=== PATIENT | male | born 1955 | race Caucasian/White ===

== ENCOUNTER → 2016-12-10 | Outpatient (CLI) | payer BC ==
[~2016-12-10] MED LIST: ADVA250A INH; FURO40TA PO; GABA300C5 PO; GABA600T PO; HYDR-3533 PO; IPRAAER INH; LISI40TA PO; MELO-1 PO; METH500T3; POTA-243 PO; SODI1TAB PO; TRAM50TA PO; [UNRECOGNIZED DRUG - CODE]
[2016-12-10 08:50] LABS: AUTOMATED NEUTROPHIL # 2.7 TH/MM3 (1.8-7.7); BASOPHIL % 0.6 % (0.0-2.0); EOSINOPHIL # 0.2 TH/MM3 (0-0.4); EOSINOPHIL % 2.8 % (0.0-4.0); HEMATOCRIT 39.3 % (39.0-51.0); HEMO FLAGS DIFF FINAL; LYMPH % 24.4 % (9.0-44.0); LYMPHOCYTE # 1.4 TH/MM3 (1.0-4.8); MEAN CELL VOLUME 98.6 FL (80.0-100.0); MEAN CORPUSCULAR HEMOGLOBIN 33.7 PG (27.0-34.0); MEAN CORPUSCULAR HGB CONC 34.1 % (32.0-36.0); MONO % 23.3 % (0.0-8.0); NEUT % 48.9 % (16.0-70.0); PLATELET COUNT 253 TH/MM3 (150-450); RED BLOOD COUNT 3.99 MIL/MM3 (4.50-5.90); RED CELL DISTRIBUTION WIDTH 13.2 % (11.6-17.2); WHITE BLOOD COUNT 5.6 TH/MM3 (4.0-11.0)
[2016-12-10 08:59] LABS: APTT (PATIENT) 27.9 SEC (24.3-30.1); INTERNATIONAL NORMALIZED RATIO 0.9 RATIO; PROTHROMBIN TIME - PATIENT 10.1 SEC (9.8-11.6)
[2016-12-10 09:17] LABS: ANION GAP 10 MEQ/L (5-15); AST (GOT) 100 U/L (15-37); BICARBONATE 24.5 MEQ/L (21.0-32.0); BLOOD UREA NITROGEN 10 MG/DL (7-18); CHLORIDE 91 MEQ/L (98-107); GLOMERULAR FILTRATION RATE 122 ML/MIN (>89); GLUCOSE,FASTING 96 MG/DL (74-99); POTASSIUM 4.8 MEQ/L (3.5-5.1); SODIUM (NA) 125 MEQ/L (136-145)
[2016-12-10 09:19] LABS: ALT (GPT) 89 U/L (12-78)
[2016-12-10 09:22] LABS: ALKALINE PHOSPHATASE 83 U/L (45-117); TOTAL BILIRUBIN ADULT 1.2 MG/DL (0.2-1.0)
[2016-12-10 10:13] LABS: BLOOD, URINE NEG (NEG); GLUCOSE,URINE NEG (NEG); KETONE, URINE NEG (NEG); NITRITE,URINE NEG (NEG); PH, URINE 6.5 (5.0-8.5); URINE COLOR YELLOW (YELLW/STRAW)
[2016-12-10 10:24] LABS: COMMENT (UR) CULT NOT INDICATED; CULTURE IF INDICATED CULT NOT INDICATED
--- NOTE | 2016-12-10 11:07 | RADRPT ---
EXAM DATE/TIME: 12/10/2016 09:14 [facility] COMPARISON: No previous studies available for comparison. INDICATIONS : Pre op cervical fusion. Evaluate for pneumothorax, pneumonia, or any communicable diseases. MEDICAL HISTORY : None. SURGICAL HISTORY : None. ENCOUNTER: Initial ACUITY: 1 day PAIN SCORE: 0/10 LOCATION: Bilateral chest FINDINGS: PA and lateral views of the chest demonstrate the lungs to be symmetrically aerated without evidence of mass, infiltrate or effusion. Granuloma left base. The cardiomediastinal contours are unremarkab le. Osseous structures are intact. CONCLUSION: No acute disease. Calvin Matthew MD FACR on December 10, 2016 at 11:06 Board Certified Radiologist. This report was verified electronically.
--- NOTE | 2016-12-10 14:44 | EKG ---
Date Performed: 12/10/2016 Time Performed: 08:21:06 PTAGE: 61 years EKG: NORMAL Sinus rhythm LOW QRS VOLTAGE POSSIBLE RIGHT VENTRICULAR CONDUCTION DELAY RIGHTWARD AXIS POOR R-WAVE PROGRESSION C ompared to prior tracing no significant change DOCTOR: Romaine Medellin Interpretating Date/Time 12/10/2016 14:44:19
== END ==
LOC: CPRE 07:53
PROVIDERS: ATTEND Neurological Surgery
DX: Z01.812 Encounter for preprocedural laboratory examination (principal); Z01.810 Encounter for preprocedural cardiovascular examination; Z01.811 Encounter for preprocedural respiratory examination; Z01.818 Encounter for other preprocedural examination; M48.02 Spinal stenosis, cervical region
CPT/HCPCS: 36415; 71020; 80053; 81001; 85025; 85610; 85730; 93005

== ENCOUNTER → 2016-12-12 | Outpatient (CLI) | payer BC ==
[~2016-12-12] MED LIST changes: -METH500T3; -[UNRECOGNIZED DRUG - CODE]
--- NOTE | 2016-12-12 14:24 | EKG ---
Date Performed: 12/12/2016 Time Performed: 08:16:21 PTAGE: 61 years EKG: Sinus rhythm POSSIBLE ANTEROSEPTAL INFARCT, AGE UNDETERMINED ABNORMAL ECG NO PREVIOUS TRACING DOCTOR: Ernie Quintanilla Interpretating Date/Time 12/12/2016 14:22:44
== END ==
LOC: CPRE 08:05
PROVIDERS: ATTEND Neurological Surgery
DX: Z01.810 Encounter for preprocedural cardiovascular examination (principal); Z01.811 Encounter for preprocedural respiratory examination; Z01.812 Encounter for preprocedural laboratory examination; Z01.818 Encounter for other preprocedural examination; M48.02 Spinal stenosis, cervical region; R94.31 Abnormal electrocardiogram [ECG] [EKG]
CPT/HCPCS: 93005

== ENCOUNTER 2016-12-17 06:30 | Observation (INO) | payer BC ==
[~2016-12-17] VITALS: Ht 182.9 cm; Wt 91.9 kg
[~2016-12-17 06:30] MED LIST changes: -HYDR-3533 PO
[2016-12-17] MEDS ORDERED: VANCOMYCIN HCL 1000 MG ON-CALL/NS 250 ML IV SCH ×4 (06:45→07:00)
[2016-12-17] MEDS ORDERED: SODIUM CHLOR 0.9% 1000 ML INJ 1,000 ML IV SCH (07:00)
[2016-12-17] MEDS ORDERED: LACTATED RINGER'S 1000 ML IV PRN (07:00)
[2016-12-17] MEDS ORDERED: METOPROLOL TARTRATE 25 MG TAB PO PRN (07:00)
[2016-12-17] MEDS ORDERED: SODIUM CHLORID 0.9% 500 ML IV PRN (07:00)
[2016-12-17] MEDS ORDERED: CHLORHEXIDINE GLUCONATE 2 % 1 PACK (2 CLOTHS) TOPICAL PRN (07:00)
[2016-12-17] MEDS ORDERED: POVIDONE IODINE 5% (ANTISEPSIS KIT) 4 APPLICATIONS EACH NARE PRN (07:00)
[2016-12-17] MEDS ORDERED: INSULIN HUMAN REGULAR 1,000 UNITS/10 ML VIAL SQ PRN (07:00)
[2016-12-17] MEDS ORDERED: PROPOFOL 500 MG/50 ML INJ 100 ML ONE (07:09)
[2016-12-17] MEDS ORDERED: ceFAZolin 2 GM PREMIX 50 ML ONE (07:43)
[2016-12-17] MEDS ORDERED: MICROFIBRILLAR COLLAGEN HEMOSTAT 70 X 35 MM BANDAGE ONE (07:43)
[2016-12-17] MEDS ORDERED: THROMBIN (TOPICAL) 5,000 UNIT VIAL ONE (07:43)
[2016-12-17] MEDS ORDERED: GENTAMICIN SULFATE 80 MG/2 ML VIAL ONE (07:44)
[2016-12-17] MEDS ORDERED: GELFOAM SIZE 100 ONE (07:44)
[2016-12-17] MEDS ORDERED: ARTIFICIAL TEARS OPTH OINT 3.5 APPLIC/3.5 GM TUBO ONE (08:38)
[2016-12-17] MEDS ORDERED: DO NOT ADM ANY ANTICOAGULANT DRUGS PRN (11:30)
--- NOTE | 2016-12-17 11:39 | PD.OP ---
Operative Report Date of Surgery: Dec 17, 2016 Preoperative Diagnosis: CERVICAL SPINAL STENOSIS Postoperative Diagnosis: CERVICAL SPINAL STENOSIS Procedure: C5-6 anterior cervical discectomy, interbody arthodhesis using PEEK cage filled with autologous bone graft, Simplicity plate and screws Anesthesia: general Surgeon: Rick Gutierrez Airport Security Screener(s): Kelsey Kingsley Operation and Findings: INDICATIONS FOR THE PROCEDURE Mr. liao is a 61 year-old male who presented with intractable neck pain and clinical evidence of C6 upper extremity radiculopathy. He had severe stanosis at C5-6. He failed maximum nonsurgical management including multiple modalities of conservative treatment as well as pain management interventions by an interventional pain specialist. A surgical decompression and arthrodhesis were indicated. The [id number] details of the procedure, indications, alternatives, risks and potential complications were fully discussed with the patient. The patient fully understood. All The questions were answered. No guarantees were given. The patient voiced requesting the procedure and provided informed consents. The patient was offered the alternative of delaying the procedure and continuing with nonsurgical management. DETAILS OF THE SURGICAL PROCEDURE After the induction of general anesthesia, endotracheal intubation was performed. A Bennett catheter, bilateral MANUELA hose, and sequential compression devices were placed and kept throughout the procedure. The patient was positioned supine on a Tim table with the head over a gel doughnut. All pressure points were carefully padded with egg crate mattress. The eyes were tapped shut after ointment was applied by the anesthesiologist to prevent corneal abrasion. A Tessy hugger was placed over the exposed lower body to maintain control of the core body temperature. The electrophysiological team placed the needles and electrodes in their proper location and baseline SSEP's and motor evoked potentials were registered. The anterior cervical region was prepped and draped in the usual sterile fashion. A localizing x-ray was performed with a C-arm. The surgical procedure was performed in several steps as follow: SURGICAL APPROACH A skin incision was made along the middle cervical crease with a #10 blade. The dissection was carried out through the platysma exposing the sternocleidomastoid muscle. The cervical spine was approached following the fascial layers of the neck just medial to the anterior border of the sternocleidomastoid and carotid sheath by a combination of sharp and dull dissection. The omohyoid muscle was identified and carefully dissected laterally and the deep cervical fascia was carefully opened. The longus colli muscles were retracted to each side of the midline. A marker was placed at the disc space C5-6 and a cross-table lateral x-ray performed with a C-arm. SURGICAL DECOMPRESSION In order to decompress the anterior surface of the spinal cord it was necessary to preform a microsurgical resection of the disk. At this point in the procedure the operating microscope was draped in the usual sterile fashion and brought to the field. The rest of the surgical procedure was performed using microdissection technique with the exception of the closure. Under the operative microscopic, an anterior osteophytic spur was carefully removed using the leksell, and a self-retaining retractor was placed underneath the longus colli muscle. The annulus at C5-6 was incised with a #15 blade and microdiscectomy was then carefully carried out using angled curets and pituitary forceps. The patient had a posterior osteophytic/disk complex which was producing mass affect on the anterior surface of the dural sac. This was carefully drilled with a TPS drill and resected with a think foot plate 2mm kerrison under high magnification. The posterior longitudinal ligament was then elevated with an angled curet and incised with a 15 bladed knife. A careful ressection of the posterior longitudinal ligament was carried out using a thin footplate 2 mm Kerrison. The decompression was then carried out laterally , and a bilateral foraminotomy was performed with a 2mm thin foot Kerrison. Then the vertebral bodies above and below the disk space were undercut using a 2 mm thin foot Kerrison. The epidural space was the systematically assessed with a nerve hook in search for disk fragments. An excellent decompression was achieved in both, the dural sac and bilateral exiting nerve roots. The incision was then irrigated with a large amount of antibiotic solution INTERBODY ARTHRODHESIS In order to avoid collapse of the disk space which would result in bilateral foraminal stenosis, and to increase the chances of a successful fusion, it was necessary to place an interbody cage filled with autologous bone. At this point of the procedure, the superior and inferior endplates were then evenly decorticated with a TPS drill. The use of a drill in combination with a curette allowed me to systematically remove the cartilaginous endplates, exposing healthy bone for the interbody arthrodesis. forteen millimeters distraction pins were then placed at the vertebral bodies adjacent to the disk space, and gentle distraction was applied. The size of the interbody cage was then assessed using different size spacers, and a rasp was used to ensure no residual cartilage. A PEEK cage of the appropriate size was selected, and the interbody arthrodesis was then preformed by carefully impacting a PEEK cage filled with autologous bone graft to the disc space C5-6. An excellent position of the cage was achieved. This was was confirmed anatomically by feelling the space posterior to the implant and distance to the anterior surface of the dural sac. Radiological confirmation of the position was performed with a cross lateral xray performed with the C-arm. INTERNAL INSTRUMENTAL FIXATION Once that the interbody device was in an appropriate position, it was necessary to stabilize the spine with anterior instrumentation. Anterior instrumentation has demonstrated to increase the rate of fusion, acelerate the patient's recovery, and decrease the rate of failed interbody grafts. At this point of the procedure, the distance between the vertebral bodies was carefully measures, and a Simplicity plate was brought to the field and presented in front of the C5 and 6 vertebral bodies. Beauty Sales Consultant holes were then drilled using the TPS drill, and the plate was then secured to the spine using self-drilling, self-tapping screws. Initially, the inferior right screw was inserted, followed by placement of the contra lateral upper screw. The remaining screws were sequentially placed in a contra-lateral fashion. A proper purchase was achieved with all screws and the position of the cage, plate and screws, and alignment of the spine was assessed anatomically by direct visualization, and radiologically by performing a cross lateral xray of the cervical spine with the C-arm. CLOSURE The incision was irrigated with several liters of antibiotic solution. Hemostasis was achieved with a bipolar. The screws were locked to prevent backing out. A 7 mm Tim-Anna drain was left in the prevertebral space and externalized through a separate stab incision. The incision was then closed in layers. 3-0 Vicryl with interrupted sutures was used to close the platysma and subcutaneous tissue. The skin was closed with 4-0 running subcuticular Vicryl and Dermabond was applied to the skin. The drain was secured with a 3-0 nylon. At the end of the procedure the sponge, needle and instrument counts were all correct. The estimated blood loss was less than 50 cc. No blood transfusion was given. No intraoperative complications occurred. The patient received prophylactic antibiotics. The patient was then extubated and transferred to the recovery room in stable condition. Rick Gutierrez MD Dec 17, 2016 11:39
[2016-12-17] MEDS ORDERED: ACETAMINOPHEN/HYDROcodone 325 MG/10 MG TAB PO PRN (11:45)
[2016-12-17] MEDS ORDERED: MORPHINE SULFATE 4 MG/ML INJ IV PUSH PRN ×2 (11:45)
[2016-12-17] MEDS ORDERED: cloNIDine HCL 0.1 MG TAB PO/NG PRN (11:45)
[2016-12-17] MEDS ORDERED: HYDR-3533 PO (11:45)
[2016-12-17] MEDS ORDERED: SODIUM CHLORIDE 0.9% FLUSH 5 ML FLUSH IVF PRN (11:45)
[2016-12-17] MEDS ORDERED: MENTHOL LOZENGE BUCCAL PRN (11:45)
[2016-12-17] MEDS ORDERED: RESP: ALBUTEROL 2.5 MG/3 ML NEB (PRN) INH (11:45)
[2016-12-17] MEDS ORDERED: GLUCAGON 1 MG/ML VIAL OTHER PRN (11:45)
[2016-12-17] MEDS ORDERED: DEXTROSE 50% IN WATER 50 ML VIAL(D50) IV PUSH PRN (11:45)
[2016-12-17] MEDS ORDERED: ACETAMINOPHEN 325 MG TAB PO PRN (11:45)
[2016-12-17] MEDS ORDERED: BISACODYL 10 MG SUPP RECTAL PRN (11:45)
[2016-12-17] MEDS ORDERED: ONDANSETRON HCL 4 MG/2 ML VIAL IV PRN (11:45)
[2016-12-17] MEDS ORDERED: MAGNESIUM HYDROXIDE SUSP 30 ML CUP PO PRN (11:45)
[2016-12-17] MEDS ORDERED: *MEPERIDINE 25 MG INJ VIAL PERIprocedural Use ONLY ONE (11:52)
[2016-12-17] MEDS ORDERED: MIDAZOLAM HCL 2 MG/2 ML VIAL IV ONE (12:00)
[2016-12-17] MEDS ORDERED: NEOSTIGMINE 3 MG/3 ML SYR IV ONE (12:00)
[2016-12-17] MEDS ORDERED: PHENYLEPH/NS 1000 MCG/10 ML SYR IV ONE (12:00)
[2016-12-17] MEDS ORDERED: ONDANSETRON HCL 4 MG/2 ML VIAL IV PUSH ONE (12:00)
[2016-12-17] MEDS ORDERED: ePHEDrine/NS 25 MG/5 ML SYR IV ONE (12:00)
[2016-12-17] MEDS ORDERED: DEXAMETHASONE SOD PHOS 4 MG/ML VIAL IV ONE (12:00)
[2016-12-17] MEDS ORDERED: PROPOFOL 200 MG/20 ML AMP IV ONE (12:00)
[2016-12-17] MEDS ORDERED: LIDOCAINE HCL 1% PF 5 ML AMPULE OTHER ONE (12:00)
[2016-12-17] MEDS ORDERED: GLYCOPYRROLATE 1 MG/5 ML SYRINGE IV PUSH ONE (12:00)
[2016-12-17] MEDS ORDERED: ROCURONIUM INJ 50 MG/5 ML SYRINGE IV PUSH ONE (12:00)
[2016-12-17] MEDS: INSULIN ASPART SUPPLEMENTAL SCALE SQ SCH ×3 (12:00→21:57)
[2016-12-17] MEDS ORDERED: *morphine SULFATE 8 MG/ML PERIprocedure ONLY ONE ×2 (12:08→13:28)
[2016-12-17] MEDS ORDERED: NON-FORMULARY DRUG (Ipratropium-Albuterol Inh (Combivent Respimat Inh) 1 PUFF) INH SCH (13:00)
[2016-12-17] MEDS: SODIUM CHLOR 0.9% 1000 ML INJ 1,000 ML IV SCH ×2 (14:31→16:07)
--- NOTE | 2016-12-17 15:44 | RADRPT ---
EXAM DATE/TIME: 12/17/2016 09:45 [facility] COMPARISON: No previous studies available for comparison. INDICATIONS : Fusion C5,C6. MEDICAL HISTORY : None. SURGICAL HISTORY : None. ENCOUNTER: Initial ACUITY: 1 day PAIN SCORE: Non-responsive. LOCATION: Cervical spine. FINDINGS: 2 magnified C. arm spot views are centered over the cervical spine and reveal an anterior fusion plat e with intervening bone graft device at C5-C6. Good alignment noted. Paraspinal soft tissues are obsc ured by an endotracheal tube. Carotid artery atherosclerotic calcifications noted bilaterally. CONCLUSION: Limited images as detailed above. Wiliam De Dios Jr., MD on December 17, 2016 at 15:42 Board Certified Radiologist. This report was verified electronically.
[2016-12-17] MEDS: DEXAMETHASONE SOD PHOS 4 MG/ML VIAL IV PUSH SCH ×2 (16:06→21:57)
[2016-12-17] MEDS: ceFAZolin 2 GM PREMIX 50 ML IV SCH (16:13)
[2016-12-17 17:24] VITALS: BP 132/84; PULSE 110; RESP 16; TEMP 97.7; O2SAT 94
[2016-12-17] MEDS: CYCLOBENZAPRINE HCL 10 MG TAB PO PRN (17:39)
[2016-12-17] MEDS: ACETAMINOPHEN/HYDROcodone 325 MG/10 MG TAB PO PRN ×2 (17:40→21:58)
[2016-12-17] MEDS: ALBUTEROL SULFATE 90 MCG/ACT HFA 8 GM INHALER INH SCH ×2 (18:46→21:54)
[2016-12-17 19:05] VITALS: BP 164/94; PULSE 120; RESP 16; TEMP 96.4; O2SAT 94
[2016-12-17] MEDS ORDERED: GABAPENTIN 300 MG CAP PO SCH (21:00)
[2016-12-17] MEDS ORDERED: CHLORHEXIDINE GLUCONATE 4% SOLN 120 ML BTL TOP SCH (21:00)
[2016-12-17] MEDS: DOCUSATE SODIUM 100 MG CAP PO SCH (21:56)
[2016-12-17] MEDS: traMADol HCL 50 MG TAB PO SCH (21:56)
[2016-12-17] MEDS: SODIUM CHLORIDE 0.9% FLUSH 5 ML FLUSH IVF SCH (21:58)
[2016-12-17] MEDS ORDERED: LORazepam 2 MG/ML VIAL IV PRN (22:15)
[2016-12-17] MEDS: BUDESONIDE-FORMOTEROL 160/4.5 MCG INHALER INH SCH (22:47)
[2016-12-18 00:20] VITALS: BP 130/81; PULSE 97; RESP 16; TEMP 97.3; O2SAT 94
[2016-12-18] MEDS: SODIUM CHLOR 0.9% 1000 ML INJ 1,000 ML IV SCH (00:48)
[2016-12-18] MEDS: ceFAZolin 2 GM PREMIX 50 ML IV SCH ×2 (00:48→08:55)
[2016-12-18] MEDS: DEXAMETHASONE SOD PHOS 4 MG/ML VIAL IV PUSH SCH ×2 (03:57→08:56)
[2016-12-18] MEDS: ACETAMINOPHEN/HYDROcodone 325 MG/10 MG TAB PO PRN ×2 (03:57→11:25)
[2016-12-18 04:17] VITALS: BP 131/75; PULSE 84; RESP 16; TEMP 96.5; O2SAT 94
[2016-12-18 08:00] VITALS: BP 149/76; PULSE 81; RESP 18; TEMP 96.7; O2SAT 94
[2016-12-18] MEDS: INSULIN ASPART SUPPLEMENTAL SCALE SQ SCH (08:00)
[2016-12-18] MEDS: DOCUSATE SODIUM 100 MG CAP PO SCH (08:56)
[2016-12-18] MEDS: CYCLOBENZAPRINE HCL 10 MG TAB PO PRN (08:56)
[2016-12-18] MEDS: SODIUM CHLORIDE 0.9% FLUSH 5 ML FLUSH IVF SCH (08:57)
[2016-12-18] MEDS: traMADol HCL 50 MG TAB PO SCH (08:57)
[2016-12-18] MEDS: ALBUTEROL SULFATE 90 MCG/ACT HFA 8 GM INHALER INH SCH (08:58)
[2016-12-18] MEDS ORDERED: GABAPENTIN 300 MG CAP PO SCH (09:00)
[2016-12-18] MEDS ORDERED: POTASSIUM CHLORIDE 10 MEQ CONTROLLED RELEASE TAB PO SCH (09:00)
[2016-12-18] MEDS ORDERED: SODIUM CHLORIDE 1 GRAM TAB PO SCH (09:00)
[2016-12-18] MEDS ORDERED: LISINOPRIL 20 MG TAB PO SCH (09:00)
[2016-12-18] MEDS ORDERED: PANTOPRAZOLE SODIUM 40 MG VIAL IVP SCH (09:00)
[2016-12-18] MEDS ORDERED: TIOTROPIUM BROMIDE 18 MCG INH INH SCH (09:00)
[2016-12-18] MEDS ORDERED: FUROSEMIDE 40 MG TAB PO SCH (09:00)
[2016-12-18] MEDS ORDERED: PANTOPRAZOLE SOD 40 MG DELAYED RELEASE TAB PO SCH (09:00)
--- NOTE | 2016-12-18 10:44 | HHI.DCPOC ---
Discharge Care Plan Diagnosis: (1) Status post cervical arthrodesis Goals to Promote Your Health * To prevent worsening of your condition and complications * To maintain your health at the optimal level Directions to Meet Your Goals Take your medications as prescribed Follow your dietary instruction Follow activity as directed Keep your appointments as scheduled Take your immunizations and boosters as scheduled If your symptoms worsen call your PCP, if no PCP go to Urgent Care Center or Emergency Room Smoking is Dangerous to Your Health. Avoid second hand smoke Call the 24-hour hour crisis hotline for domestic abuse at Irma Mancilla Dec 18, 2016 10:44
--- NOTE | 2016-12-18 10:46 | HHI.DS ---
Discharge Summary Admission Date Dec 17, 2016 at 11:38 Discharge Date: Dec 18, 2016 Admitting Diagnosis s/p ACDF (1) Status post cervical arthrodesis ICD Code: Z98.1 - Arthrodesis status Brief History Mr. Barnhart is a 61 year-old male who presented with intractable neck pain and clinical evidence of C6 upper extremity radiculopathy. He had severe stenosis at C5-6. He failed maximum nonsurgical management including multiple modalities of conservative treatment as well as pain management interventions by an interventional pain specialist. A surgical decompression and arthrodesis were indicated. Imaging Last Impressions Cervical Spine X-Ray 12/17/16 0000 Signed Impressions: Service Date/Time: Thursday, December 17, 2016 09:45 - CONCLUSION: Limited images as detailed above. Wiliam De Dios Jr., MD Hospital Course Mr. Barnhart underwent C5-6 anterior cervical discectomy, interbody arthrodesis using PEEK cage filled with autologous bone graft, simplicity plate and screws on Dec 17, 2016 for cervical spine stenosis. His surgery went well without complications. He was discharged home in stable conditions. Pt Condition on Discharge: Stable Discharge Disposition: Disch w/ Home Health Serv Discharge Instructions DIET: Follow Instructions for: Heart Healthy Diet ACTIVITIES You can perform: Weight Bearing As Aaron ADDITIONAL Activity Instructio: Avoid strenuous activities, heavy lifting over 5 lbs, overhead activities, repetitive bending, twisting, pushing, pulling or any activities which might result in stress over the spine. Avoid situation that will put at risk for falls. Use assistive device as needed for walking. Wear cervical collar at all times, may remove only with meals. New Medications: Hydrocodone-Acetaminophen (Lortab) 5-325 Mg Tab 1 TAB PO Q8HR PRN for PAIN, #62 TAB 0 Refills Continued Medications: Fluticasone-Salmeterol Inh (Advair Diskus Inh) 250-50 Mcg/Blist Aer 1 PUFF INH BID, #1 INHALER 0 Refills Rinse mouth after use. Furosemide (Furosemide) 40 Mg Tab 40 MG PO DAILY Gabapentin (Gabapentin) 300 Mg Cap 300 MG PO DAILY Gabapentin (Gabapentin) 600 Mg Tab 600 MG PO HS, #30 TAB 0 Refills Ipratropium-Albuterol Inh (Combivent Respimat Inh) 20-100 Care Home/Act Aero 1 PUFF INH QID for Asthma Management, #1 INHALER 0 Refills Lisinopril (Lisinopril) 40 Mg Tab 40 MG PO DAILY Potassium Chloride ER (Klor-Con 10) 10 Meq Tab 10 MEQ PO DAILY Sodium Chloride (Sodium Chloride) 1 Gram Tab 1 GM PO DAILY Tramadol (Tramadol) 50 Mg Tab 50 MG PO BID Discontinued Medications: Meloxicam (Meloxicam) 15 Mg Tab 15 MG PO DAILY Irma Mancilla Dec 18, 2016 10:46
--- NOTE | 2016-12-18 10:46 | HHI.FF ---
Face to Face Verification Diagnosis: (1) Status post cervical arthrodesis Physical Therapy Order: Improve ambulation Home Health Nursing Order: Medical education Signs/symptoms of disease process Medication education-adverse effect Wound care and dressing changes Nursing assessment with vital signs I have seen patient Gilberto Barnhart on 12/18/16. My clinical findings support the need for the requested home health care services because: Deconditioned w/ increased weakness High risk of falls I certify that my clinical findings support that this patient is homebound because: Post-op weakness Unsteady gait/balance Irma Mancilla Dec 18, 2016 10:46
[2016-12-18] MEDS: BUDESONIDE-FORMOTEROL 160/4.5 MCG INHALER INH SCH (11:12)
== END 2016-12-18 11:52 | disposition home health service (06) ==
LOC: HSDC 06:30 → HSDI 11:38 → N06B 17:05
PROVIDERS: ADMIT Neurological Surgery; ATTEND Neurological Surgery
DX: M48.02 Spinal stenosis, cervical region (principal); M54.12 Radiculopathy, cervical region; M54.2 Cervicalgia; G89.29 Other chronic pain; I10 Essential (primary) hypertension; J44.9 Chronic obstructive pulmonary disease, unspecified; K21.9 Gastro-esophageal reflux disease without esophagitis; R73.02 Impaired glucose tolerance (oral)
CPT/HCPCS: 00600; 20936; 22551; 22845; 22859; 72040; 76000; 82948; 96361; 96374; 96375; 96376; 97161; C1713; C9113; G0378; G8987; G8988; J0690; J1100; J1580; J1815; J2175; J2250; J2270; J2370; J2405; J2710; J3010; J3370; J7030; J7050; J7120; L0150; L0172

== ENCOUNTER 2018-03-03 07:57 | Inpatient (IN) ==
[~2018-03-03 07:57] MED LIST changes: -ADVA250A INH; +Bupivacaine/Epinephrine PF Inj 0.5% 30 ML Vial ONE; -FURO40TA PO; -GABA300C5 PO; -GABA600T PO; +Gelatin Size 100 Topical Foam ONE; -IPRAAER INH; -LISI40TA PO; -MELO-1 PO; -POTA-243 PO; +Propofol Inj 500 MG/50 ML Vial ONE; -SODI1TAB PO; -TRAM50TA PO; +Thrombin Topical Soln 5,000 UNIT Vial TOPICAL ONE; +ceFAZolin 1 GM Premix Inj 2 GM/100 ML PIGGYBACK IV.SIG ONE; +fentaNYL Citrate Inj 250 MCG/5 ML Ampul ONE
[2018-03-03] MEDS ORDERED: Sodium Chlor 0.9% Inj 250 ML ONE (08:31)
[2018-03-03] MEDS ORDERED: Sodium Chlor 0.9% Inj 500 ML IV.CONT ONE (08:45)
[2018-03-03] MEDS ORDERED: Metoprolol Tartrate 25 MG Tablet PO ONE (08:45)
[2018-03-03] MEDS ORDERED: Chlorhexidine Gluconate 2% 1 Pack (2 Cloths) TOPICAL ONE (08:45)
[2018-03-03] MEDS ORDERED: Vancomycin Inj 1,000 MG in Sodium Chlor 0.9% Inj 250 ML IV.SIG SCH (09:00)
[2018-03-03] MEDS ORDERED: Bupivacaine Liposomal PF 1.3% Inj 20 ML Vial ONE (09:50)
[2018-03-03] MEDS ORDERED: Dexmedetomidine Inj 200 MCG/2 ML Vial ONE (10:20)
[2018-03-03] MEDS ORDERED: fentaNYL Citrate Inj 250 MCG/5 ML Ampul ONE (13:19)
[2018-03-03] MEDS ORDERED: Propofol Inj 500 MG/50 ML Vial ONE (13:20)
[2018-03-03] MEDS ORDERED: Bisacodyl 10 MG Supp RECTAL PRN (14:21)
[2018-03-03] MEDS ORDERED: LORazepam 1 MG Tablet PO PRN (14:21)
[2018-03-03] MEDS ORDERED: Acetaminophen 325 MG Tablet PO PRN (14:21)
[2018-03-03] MEDS ORDERED: Naloxone Inj 0.4 MG/ML Vial IV.PUSH PRN (14:21)
[2018-03-03] MEDS ORDERED: Haloperidol Inj 5 MG/ML Ampul IV.PUSH PRN (14:21)
[2018-03-03] MEDS ORDERED: HYDROmorphone PCA Inj 6 MG/30 ML PCA.VIAL PCA ONE (14:44)
--- NOTE | 2018-03-03 14:58 | XR ---
EXAM DATE: 03/03/2018 2:54 PM EST AGE/SEX: 62 years / Male INDICATIONS: L3-4 and L4-5 fusion. CLINICAL DATA: This is the patient's initial encounter. Patient reports that signs and symptoms have been present for 1 day and indicates a pain score of Nonresponsive. MEDICAL/SURGICAL HISTORY: Non-responsive. Non-responsive. COMPARISON: POI, XR SPINE LUMBAR AP AND LAT W/ FLEX AND EXT, 10/22/2017. . FINDINGS: Transpedicular fixation L3-4 L4-5 and L5-S1. Alignment is anatomic. CONCLUSION: Anatomic alignment Electronically signed by: Calvin Matthew MD Board Certified Radiologist 03/03/2018 2:57 PM EST
[2018-03-03] MEDS: Sod Chloride 0.9% Inj 1,000 ML IV.CONT SCH (15:17)
[2018-03-03] MEDS: ceFAZolin 2 GM Premix Inj 2 GM/50 ML PIGGYBACK IV.SIG SCH ×2 (15:22→21:07)
--- NOTE | 2018-03-03 15:25 | P.CONIM ---
History of Present Illness Primary Care Provider: UNKNOWN History of Present Illness: This pt is a 62 y/o M with a dx of htn, copd, and lower back pain. Patient had been having issues with lower back and hip pain for a few years and was receiving spinal injections with Dr. Canchola from pain managment in the past. After no significant improvement in his pain he decided to procede forward with neurosurgical intervention. MRI showed severe degenerative disk disease at L3- L5 with disk protusions, secondary stenosis, L4-L5 radiculopathy. I was called to evaluate the patient for medical management after he underwent neurosurgical intervention today. I believe the patient had L3-L5 laminectomy. I am awaiting Dr. Murray' note from the procedure today. Patient currently has some lower back pain. He denies any chest pain, no shortness of breath currently, no fevers or chills. No other complaints. PMH HTN, COPD, DLD Surg Hx Patient says he had a neurosurgical procedure in the past but doesn't recall exactly what was done. Fam Hx None Social Hx Smoked tobacco most of his life, quit 5 yrs ago. Extensive ETOH history, says he still drinks nearly a 12 pack of beer per day. Denies any hx of drug use. Review of Systems All other systems reviewed negative except as stated in HPI PMFSH - History History Provided By: Patient - Medical History Medical History: Medical History (Last Reviewed 03/03/18 @ 08:32 by Shelly Harden) Arthritis Bursal cyst COPD (chronic obstructive pulmonary disease) Cervical spinal cord injury DDD (degenerative disc disease) Edema Emphysema, unspecified Heartburn History of fungal pneumonia History of solitary pulmonary nodule Hypertension Musculoskeletal back pain Neck pain Neuropathy Spinal stenosis Wears glasses - Surgical History Surgical History: Surgical History (Last Updated 02/26/18 @ 09:20 by Janessa Bates RN) History of arthroscopic surgery of elbow History of lung surgery Hx of fusion of cervical spine - Tobacco History Smoking Status: Former smoker - Alcohol History How Often Do You Have a Drink Containing Alcohol: 4 or more times a week - Substance Use History Substance History: No History of Abuse - Travel History Recent Travel in the [place] Within the Last 8 Weeks: No Recent Travel Out of the Country Within the Last 8 Weeks: No Medications and Allergies Active Medications: Active Medications Acetaminophen (Tylenol) 650 mg PO Q4H PRN PRN Reason: TEMPERATURE > 101.5 F Hydrocodone Bitart/Acetaminophen ([place] 10/325) 1 tab PO Q4H PRN PRN Reason: Pain Scale 1 To 5 Al Hydroxide/Mg Hydroxide (Milk Of Magnesia Liq) 30 ml PO Q12H PRN PRN Reason: Mild Constipation Bisacodyl (Dulcolax Supp) 10 mg RECTAL DAILY PRN PRN Reason: SEVERE CONSITIPATION Clonidine HCl (Catapres) 0.1 mg PO Q6H PRN PRN Reason: For SBP >/= 180, DBP >/= 100 Cyclobenzaprine HCl (Flexeril) 10 mg PO Q8H PRN PRN Reason: MUSCLE SPASM Flumazenil (Romazicon Inj) 0.2 mg IV.PUSH Q1M PRN PRN Reason: OVERSEDATION Folic Acid (Folic Acid) 1 mg PO DAILY [facility] Stop: 03/09/18 08:59 Haloperidol Lactate (Haldol Inj) 1 mg IV.PUSH Q15M PRN PRN Reason: for severe agitation Lactated Ringer's (Lr 1000 Ml Inj) 1,000 mls @ 30 mls/hr IV.CONT .Q24H ONE Stop: 03/04/18 08:44 Last Admin: 03/03/18 08:49 Dose: 30 mls/hr Sodium Chloride (Ns Inj) 500 mls @ 30 mls/hr IV.CONT .[id number] ONE Stop: 03/04/18 01:24 Vancomycin HCl 1,000 mg/ (Sodium Chloride) 250 mls @ 250 mls/hr IV.SIG SMALL ANIMAL VETERINARIAN [facility] Stop: 03/06/18 08:59 Cefazolin Sodium/Dextrose (Ancef 2 Gm Premix Inj) 2 gm in 50 mls @ 100 mls/hr IV.SIG Q8H [facility] Stop: 03/04/18 07:29 Hydromorphone/Sodium Chloride (Dilaudid Health Service Coordinator Inj) 6 mg in 30 mls @ 0 mls/hr DONOR CENTER TECHNICIAN UNSCH PRN PRN Reason: prn pain Sodium Chloride (Ns Inj) 1,000 mls @ 100 mls/hr IV.CONT .Q10H [facility] Lactulose (Lactulose Liq) 30 ml PO DAILY PRN PRN Reason: SEVERE CONSITIPATION Lorazepam (Ativan) 1 mg PO Q4H PRN PRN Reason: for CIWA 8-10 Lorazepam (Ativan) 2 mg PO Q2H PRN PRN Reason: for CIWA 11-14 Lorazepam (Ativan Inj) 2 mg IV.PUSH Q2H PRN PRN Reason: for CIWA 11-14 Lorazepam (Ativan Inj) 2 mg IV.PUSH Q1H PRN PRN Reason: for CIWA 15-20 Lorazepam (Ativan Inj) 2 mg IV.PUSH Q15M PRN PRN Reason: for CIWA > 20 Lorazepam (Ativan Inj) 1 mg IV.PUSH Q4H PRN PRN Reason: for CIWA 8-10 Multivitamins/Minerals (Theragran-M) 1 tab PO DAILY [facility] Stop: 03/09/18 08:59 Naloxone HCl (Narcan Inj) 0.4 mg IV.PUSH PRN PRN PRN Reason: SEE LABEL COMMENTS Ondansetron HCl (Zofran Inj) 4 mg IV.PUSH Q6H PRN PRN Reason: NAUSEA OR VOMITING Pantoprazole Sodium (Protonix) 40 mg PO DAILY [facility] Senna/Docusate Sodium (Amy-Colace) 1 tab PO BID [facility] Sennosides (Senokot) 17.2 mg PO Q12H PRN PRN Reason: Moderate Constipation Thiamine HCl (Vitamin B1) 100 mg PO DAILY [facility] Allergies Allergy/AdvReac Type Severity Reaction Status Date / Time No Known Allergies Allergy Verified 02/26/18 09:20 Home Medications Medication Instructions Recorded Confirmed Type sodium chloride 1,000 mg PO DAILY 10/06/17 03/03/18 History fluticasone-salmeterol [Advair 1 inh INHALATION BID 02/26/18 03/03/18 History Diskus] gabapentin 600 mg PO TID 02/26/18 03/03/18 History lisinopril 40 mg PO DAILY 02/26/18 03/03/18 History meloxicam 15 mg PO DAILY 02/26/18 03/03/18 History methocarbamol [Robaxin] 500 mg PO QID 02/26/18 03/03/18 History tramadol 50 mg PO Q6H PRN 02/26/18 03/03/18 History Exam Vital signs: Vital Signs 03/03/18 08:31 Temperature 98.9 F Pulse Rate 109 H Respiratory Rate 18 Blood Pressure 152/98 H Pulse Oximetry 95 Intake & Output 03/02/18 03/03/1819 18:59 06:59 18:59 Intake Total 1700 / 1700 Output Total 850 / 850 Balance 850 / 850 Weight 82.6 kg Intake: Anesthesia Amount 1700 / 1700 Output: Estimated Blood Loss 50 / 50 Urine Amount (Catheter) 800 / 800 Indwelling Urethral Catheter 800 / 800 Other: Weight On Admission 82.6 kg Narrative: alert and oriented, slightly drowsy post op S1S2, tachycardic CTA B/L Abd soft, normal bowel sounds No edema of exts Neuro, patient is moving all 4 exts, sensation intact b/l Results - Labs Labs: Laboratory Results - last 24 hr 03/03/18 08:35 Blood Type A Positive Blood Type Recheck Not needed Antibody Screen Negative - Imaging Impressions Lumbar Spine X-Ray 03/03/18 00:00 CONCLUSION: Anatomic alignment Assessment and Plan - Plan This pt is a 62 y/o M with a dx of htn, copd, and lower back pain. Patient had been having issues with lower back and hip pain for a few years and was receiving spinal injections with Dr. Canchola from pain managment in the past. After no significant improvement in his pain he decided to procede forward with neurosurgical intervention. MRI showed severe degenerative disk disease at L3- L5 with disk protusions, secondary stenosis, L4-L5 radiculopathy. I was called to evaluate the patient for medical management after he underwent neurosurgical intervention today. I believe the patient had L3-L5 laminectomy. I am awaiting Dr. Murray' note from the procedure today. 1. S/P Laminectomy 2. Tachycardia Patient is s/p neurosurgery today. I am awaiting Dr. Murray' note to see what exactly was done in the OR. Currently he is on Iv pump pain medications. Continue management as per neurosurgery. Start PT when ok with neurosurgery. Pt slightly tachycardic, likely from pain. Continue pain management. Continue IVF. Follow up all labs. 2. HTN Start norvasc 5mg q daily Labs ordered. If kidney function is ok then pt can be restarted on Lisinopril which he takes at home. Adjust bp meds as needed. 3. COPD Continue supplemental oxygen and Duoneb txs as needed. I do not see symbicort on the pts med list. This can also be started. 4. ETOH abuse Patient with extensive etoh drinking hx. CIWA protocol already ordered. Watch for signs of withdrawal. Last drink was a day ago. 5 Minutes was spend counseling the patient on etoh abuse. Pharmacotherapy for dvt prophylaxis when ok with neurosurgery.
[2018-03-03] MEDS ORDERED: *Meperidine Inj 25 MG/ML Vial PERIprocedural Use ONLY ONE (15:49)
[2018-03-03] MEDS: amLODIPine 5 MG Tablet PO SCH (16:32)
[2018-03-03 18:08] LABS: Baso % (Auto) 0.1 % (0.0-2.0); Eos % (Auto) 0.1 % (0.0-4.0); Hematocrit 33.8 % (39.0-51.0); Lymph # (Auto) 0.5 th/mm3 (1.0-4.8); Lymph % (Auto) 5.5 % (9.0-44.0); Mean Corpuscular HGB Conc 35.6 % (32.0-36.0); Mean Corpuscular Hemoglobin 35.7 pg (27.0-34.0); Mean Corpuscular Volume 100.3 fL (80.0-100.0); Mean Platelet Volume 7.6 fL (7.0-11.0); Mono # (Auto) 0.9 th/mm3 (0.0-0.9); Mono % (Auto) 9.2 % (0.0-8.0); Neut # (Auto) 8.2 th/mm3 (1.8-7.7); Neut % (Auto) 85.1 % (16.0-70.0); Platelet Count 224 th/mm3 (150-450); Red Blood Count 3.37 mil/mm3 (4.50-5.90); Red Cell Distribution Width 13.6 % (11.6-17.2); White Blood Count 9.6 th/mm3 (4.0-11.0)
[2018-03-03 18:23] LABS: Anion Gap 13 meq/L (5-15); Blood Urea Nitrogen 8 mg/dL (7-18); Calcium 8.1 mg/dL (8.5-10.1); Carbon Dioxide 21.4 meq/L (21.0-32.0); Chloride 97 meq/L (98-107); Glomerular Filtration Rate Greater Than 89 mL/min (>89); Glucose,Random 119 mg/dL (74-106); Magnesium 1.8 mg/dL (1.5-2.5); Potassium 4.2 meq/L (3.5-5.1); Sodium 131 meq/L (136-145)
[2018-03-03] MEDS: Senna/Docusate Sodium 8.6/50 MG Tablet PO SCH (21:09)
--- NOTE | 2018-03-03 22:55 | P.OP ---
Preoperative Diagnosis: Lumbar degenerative disk disease, synovial cyst, intractable mechanical back pain Postoperative Diagnosis: Lumbar degenerative disk disease, synovial cyst, intractable mechanical back pain Date of procedure: 03/03/18 Procedure: L3-4, L4-L5 laminectomy with resection of epidural synovial cyst, interbody arthrodhesis using PEEK cage and autologous bone graft, L3-4, L4-L5 instrumental fixation using transpedicular screws and rods, L3-4, L4-L5 posterolateral fusion using autologous bone graft and demineralized bone matrix. Microsurgical dissection Anesthesia: GETA Surgeon: Rick Gutierrez MD Firefighting Equipment Specialist: Kelsey Narvaez Pathology: other (Synovial cyst) Operation and Findings: INDICATIONS FOR THE SURGICAL PROCEDURE Mr Barnhart is a 62 year-old male who presented with intractable mechanical back pain and meet evidence of L4 and L5 lower extremity radiculopathy. He has failed maximum nonsurgical management including multiple modalities of conservative treatment as well as pain management interventions by an interventional pain specialist. A surgical decompression and arthrodhesis were indicated as a last resort. The [id number] details of the procedure, indications, alternatives, risks and potential complications were fully discussed with the patient. The patient fully understood. All the questions were answered. No guarantees were given. He voiced requesting the procedure and provided informed consents. He was offered the alternative of delaying the procedure and continuing with nonsurgical management. DETAILS OF THE SURGICAL PROCEDURE Prior to the procedure, the procedure, risks, and potential complications revisited with the patient. Placement of electrodes for intraoperative neurophysiological monitoring was completed. The patient was taken to the operative room, and following induction of general anesthesia, endotracheal intubation was performed. A Bennett catheter, bilateral MANUELA hose and sequential compression devices were placed and kept throughout the procedure. The patient was positioned prone, over a Tim table over a bolsters. All pressure in the preoperative surgical holding room points were carefully padded with eggcrate and gel mattress. The eyes were tapped shut after ointment was applied by the anesthesiologist to prevent corneal abrasion. A Tessy hugger was placed over the expossed lower body to maintain control of the core body temperature. The electrophysiological team placed the needles and electrodes in their proper location and baseline SSEP's and motor evoked potentials were registered. The entrance to each pedicles was marked using a C arm. The lumbar region was prepped and draped in the usual sterile fashion. The surgical procedure was performed in several steps as follow: SURGICAL APPROACH Once the patient was positioned, a localizing cross-table lateral and AP x-ray was performed with a C-arm. Two paramedian small incisions were outlined on the skin approximately 3cm from the midline. The skin incisions were made with a # 10 blade. Small bleeders were controlled with the cautery. The dissection was then carried out into deeper planes and through the thoracolumbar fascia with a Bovie. The intermuscular septum was identified and the muscles were blunted dissected along the septum. The facets and transverse process of L3-4, L4,5 were exposed and the proper anatomical landmarks were identidied. A microsurgical self-retaining retractor was placed on the incision, and a localizing lateralizing cross-table x-ray was performed with an instrument underneath a lamina of the lumbar spine. INSTRUMENTAL FIXATION At this point in the procedure, placement of bilateral transpedicular screws was necessary for stabilization of the spine. Initially, the entry point for the screw was selected anatomically at the junction of the facet, with the transverse process, and the pars interarticularis at L3-4, L4,5. This was started with a Giamshetti needle, followed by the use of K wire. A tap was used to create the threads for the screws. Finally bilateral transpedicular screws were carefully placed bilaterally at L3, L4, and L5 under fluoroscopic visualization. An appropriate purchase was achieved with all screws. The position of each screw was assessed anatomically with an AP, lateral, oblique Xrays. An intraoperative scan view of the spine was then performed using the iso -centric c-arm. Each screw was then assessed electrophysiologically stimulating each screw with a nerve stimulator. SURGICAL DECOMPRESSION There was significant mass effect with compression of the neural structures. In order to relieve neural compression, it was necessary to perform a decompressive laminectomy, with decompression of the spinal canal and bilateral lateral recesses. Note that the scope of such decompression was significantly more extensive than the minimal exposure necessary to perform an interbody fusion, as there was extreme facet arthropathy with severe degeneration of the disk spaces and stenosis caused by a very large extradural synovial cyst and the hyperthrophic joint facets. At this point of the procedure the operative microscope was draped in the usual sterile fashion and brought to the field. The rest of the surgical procedure was performed using microdissection technique with the exception of the closure. Under the operating microscope, a decompressive laminectomy was carried out at L3-4, L4,5 as follow: The laminae, base of the spinous processes and facets were carefully drilled exposing the ligamentum flavum. The facets were abnormal with severe spondylolisthesis and gross mechanical instability. A large synovial cyst and a broad-based disk protusion was compressing the neural structures and exiting nerve roots. A near complete facetectomy was necessary resulting in further mechanical instability. The ligamentum flavum appeared hypertrophic, resulting on mass effect on the dorsal surface of the neural structures. The superior free border of the ligamentum flavum was elevated with a ligament dissector and the ligamentum flavum was removed with a 3 and 4 mm Kerrison forceps. A large synovial cyst was identified. The cyst, formed of fibrocartilaginous tissue was very adherent to the dural sac and during the dissection, ans extreme care was taken during the dissection. The exiting nerve roots were identified, and a wide foraminotomy was performed with a Kerrison in their trajectory towards the neural foramen. Epidural veins located laterally to the dural sac were coagulated with the bipolar cautery, and then incised using microscissors. Gentle medial retraction of the dural sac allowed me to expose the disc space for the discectomy. Upon completion of the discectomy, an excellent decompression of the neural structures was achieved. Increased motion was noted, which was consistent with mechanical instability at L3-4, L4,5. INTERBODY ARTHRODHESIS In order to correct the narrowing of the disk space and maintain distraction of the space, and to achieve a solid interbody fusion, it was necessary the insertion of an interbody device into the disk space. Otherwise, the disk space would collapse, compromising the result of the surgical procedure. At this point of the procedure, the annulus fibrosus of the disk was carefully coagulated with a bipolar cautery and incised using an 11 bladed knife. Then, a microdiscectomy was carried out in a standard fashion using a combination of straight and up-biting pituitary forceps. A reverse angle curette was applied underneath the posterior longitudinal ligament, and used to push the disk fragments into the disk space, so they can be safely removed with a pituitary forceps. Once the discectomy was completed, it was necessary to decorticate the endplates, in order to eliminate the cartilaginous endplate and to expose healthy bone appropriate to perform the interbody fusion. The endplates at L3-4 , L4,5 were then thoroughly decorticated using increasing size bone lenard and ring curets, eliminating the cartilaginous fragments from both, the superior and inferior endplates. A disk space distractor was applied to the pedicle screws and gentle distraction was applied. This maneuver was assisted by the use of a disk distractor. Increased motility was noted at the disk, which was consistent with instability due to facet arthropathy. Once a thorough preparation of the disk space was achieved, the disk space was irrigated with antibiotic solution, and the interbody fusion was performed by carefully impacting PPEK cages filled with autologous iliac crest bone graft. The use of several shoe impactors with different angulation, allowed me for an excellent, proper position of the interbody cages L3-4 and L4,5. A solid position of the cage with good purchase was achieved. The position of the cages were assessed anatomically with a probe and radiologically with the C-arm. POSTEROLATERAL FUSION The posterolateral fusion is a critical component to the procedure, to prevent future fatigue and failure of the instrumental fixation. Initially, the transverse processes of the vertebral bodies, lateral surface of the facets and the lateral gutters of the spine were carefully cleaned, eliminating all soft tissue and muscle attachments. The area was then irrigated with a large amount of antibiotic solution. Subsequently, the transverse processes, lateral surface of the facets, and lateral gutters of the spine were thoroughly decorticated using the TPS drill with a 5mm cutting ashtyn, exposing cancellous bone, in preparation for the posterolateral fusion. The incision was again irrigated with antibiotic solution. Then, the posterolateral fusion was then performed by carefully packing the lateral gutters of the spine at L3-4, L4,5 with autologous iliac crest bone combined with demineralized bone matrix. I packed as much bone as possible. COMPLETION OF THE INSTRUMENTATION AND CLOSURE The rods were brought to the field, applied to all the screws, and the screw caps were sequentially applied. Compression was performed between the pedicle screws, and final tightening of the screws was completed using a torque wrench. The incision was again thoroughly irrigated with several liters of antibiotic solution, and hemostasis secured with the bipolar cautery. A Valsalva Maneuver performed by the anesthesiologist failed to show any evidence of cerebrospinal fluid leak or bleeding. A 7 mm Tim-Anna drain was left in the epidural space and externalized through a separate stab incision. The incision was then closed in planes. 0 Vicryl was used in an interrupted fashion to close the thoracolumbar fascia and the superficial fascia. The subcutaneous tissue was then approximated using 3-0 Vicryl in an interrupted fashion. Special care was taken to avoid space. The skin was then closed with 4-0 Vicryl in a running, subcuticular fashion. Dermabond was applied to the skin. Each plane of closure was irrigated with antibiotic solution. At the end of the procedure the sponge, needle and instrument counts were all correct. Estimated blood loss was 250 cc. No blood transfusion was given. The entire procedure was performed using continuous electrophysiological monitoring of the somatosensorial evoked potentials and EMG. The patient received prophylactic antibiotics. The patient was then extubated and transferred to the recovery room in stable condition.
[2018-03-03] MEDS: HYDROmorphone PCA Inj 6 MG/30 ML PCA.VIAL PCA PRN (23:41)
[2018-03-04] MEDS: Sod Chloride 0.9% Inj 1,000 ML IV.CONT SCH ×2 (01:39→11:40)
[2018-03-04 05:04] LABS: Baso % (Auto) 0.3 % (0.0-2.0); Eos % (Auto) 0.1 % (0.0-4.0); Hematocrit 31.1 % (39.0-51.0); Hemoglobin 10.5 gm/dL (13.0-17.0); Mean Corpuscular HGB Conc 33.8 % (32.0-36.0); Mean Corpuscular Volume 100.8 fL (80.0-100.0); Mean Platelet Volume 7.7 fL (7.0-11.0); Mono # (Auto) 1.4 th/mm3 (0.0-0.9); Mono % (Auto) 15.4 % (0.0-8.0); Neut # (Auto) 6.5 th/mm3 (1.8-7.7); Neut % (Auto) 73.2 % (16.0-70.0); Platelet Count 223 th/mm3 (150-450); Red Blood Count 3.09 mil/mm3 (4.50-5.90); Red Cell Distribution Width 13.5 % (11.6-17.2); White Blood Count 8.9 th/mm3 (4.0-11.0)
[2018-03-04] MEDS: ceFAZolin 2 GM Premix Inj 2 GM/50 ML PIGGYBACK IV.SIG SCH ×2 (05:31→15:00)
[2018-03-04 05:43] LABS: Calcium 7.3 mg/dL (8.5-10.1); Carbon Dioxide 23.6 meq/L (21.0-32.0)
[2018-03-04 05:53] LABS: Albumin 2.8 g/dL (3.4-5.0); Calcium-Albumin Corrected 8.3 mg/dL (8.5-10.1)
[2018-03-04 10:14] LABS: Albumin 2.9 g/dL (3.4-5.0)
[2018-03-04 10:15] LABS: Total Protein 6.2 g/dL (6.4-8.2)
[2018-03-04] MEDS: Senna/Docusate Sodium 8.6/50 MG Tablet PO SCH ×2 (10:40→21:51)
[2018-03-04] MEDS: amLODIPine 5 MG Tablet PO SCH (10:40)
[2018-03-04] MEDS: Folic Acid 1 MG Tablet PO SCH (10:40)
[2018-03-04] MEDS: Multivitamin/Minerals Therapeutic Tablet PO SCH (10:40)
[2018-03-04] MEDS ORDERED: Sodium Chlor 0.9% Inj 500 ML IV.SIG SCH (11:00)
--- NOTE | 2018-03-04 12:46 | P.PNIM ---
Subjective Interval history: In bed appears in some pain. Patient denies chest pain. Has some sob. Satting well on NC. No fever or chills. No n/v/d/c. Physical Exam Vital signs: Last Vital Signs Temp 99 F 03/04/18 08:53 Pulse 133 H 03/04/18 08:53 Resp 19 03/04/18 08:53 BP 92/54 L 03/04/18 08:53 Pulse Ox 94 L 03/04/18 10:02 Intake & Output 03/02/18 03/03/18 03/04/18 03/05/18 06:59 06:59 06:59 06:59 Intake Total 3520 / 3520 Output Total 1090 / 1090 30 / Balance 2430 / 2430 -30 / -30 Weight 89.8 kg Narrative: GENERAL: 62 yo male, appears in nad. CARDIOVASCULAR: Regular rate and rhythm without murmurs, gallops, or rubs. RESPIRATORY: Breath sounds equal bilaterally. No accessory muscle use. GASTROINTESTINAL: Abdomen soft, non-tender, nondistended. MUSCULOSKELETAL: No cyanosis, or edema. NEURO: Alert and oriented. CN grossly normal. Strength grossly normal. Normal speech. Urinary Catheter Management Indwelling Urethral Catheter: Cath placed during this visit: yes Urethral indwelling: No Insertion date: 03/03/18 Insertion time: 09:30 Results Labs CBC & Chem 7: 03/04/18 04:27 03/04/18 04:27 Imaging Imaging: Impressions Lumbar Spine X-Ray 03/03/18 00:00 CONCLUSION: Anatomic alignment Assessment and Plan Plan This pt is a 62 y/o M with a dx of htn, copd, and lower back pain. Patient had been having issues with lower back and hip pain for a few years and was receiving spinal injections with Dr. Canchola from pain managment in the past. After no significant improvement in his pain he decided to procede forward with neurosurgical intervention. MRI showed severe degenerative disk disease at L3- L5 with disk protusions, secondary stenosis, L4-L5 radiculopathy. I was called to evaluate the patient for medical management after he underwent neurosurgical intervention today. I believe the patient had L3-L5 laminectomy. I am awaiting Dr. Murray' note from the procedure today. 1. S/P Laminectomy Lumbar degenerative disk disease, synovial cyst, intractable mechanical back pain Date of procedure: 03/03/18 Procedure: L3-4, L4-L5 laminectomy with resection of epidural synovial cyst, interbody arthrodhesis using PEEK cage and autologous bone graft, L3-4, L4-L5 instrumental fixation using transpedicular screws and rods, L3-4, L4-L5 posterolateral fusion using autologous bone graft and demineralized bone matrix. Microsurgical dissection 2. Tachycardia Patient is s/p neurosurgery I am awaiting Dr. Murray' note to see what exactly was done in the OR. Currently he is on Iv pump pain medications. Continue management as per neurosurgery. Start PT when ok with neurosurgery. Pt slightly tachycardic, likely from pain. Continue pain management. Continue IVF. Follow up all labs. Drop in HGB postsurgical, monitor. Pt with postsurgical anemia 2. HTN Start norvasc 5mg q daily Labs ordered. If kidney function is ok then pt can be restarted on Lisinopril which he takes at home. Adjust bp meds as needed. 3. COPD Continue supplemental oxygen and Duoneb txs as needed. I do not see symbicort on the pts med list. This can also be started. 4. ETOH abuse Patient with extensive etoh drinking hx. CIWA protocol already ordered. Watch for signs of withdrawal. Last drink was a day ago. 5 Minutes was spend counseling the patient on etoh abuse. Pharmacotherapy for dvt prophylaxis per neurosurgery. Progress Note: Quality VTE Deep Vein Thrombosis/Pulmonary Embolism Present on Admission: No
--- NOTE | 2018-03-04 16:24 | P.PNNS ---
Subjective Interval history: pt seen this morning during rounds, pt reports to be doing well, his pain controlled. nursing phoned later in the morning to report pt bp decreased in the 80's systolic. pt remains awake alert. hemoglobin slightly decreased today 10.5. BOYD drain 100 cc output overnight. Physical Exam Vital signs: Vital Signs 03/03/18 16:30 03/03/18 17:00 03/03/18 17:30 Temperature 98.2 F Pulse Rate 109 H 110 H 113 H Respiratory Rate 12 12 15 Blood Pressure 118/66 132/73 121/63 Pulse Oximetry 94 L 94 L 94 L 03/03/18 17:40 03/03/18 19:07 03/03/18 19:45 Temperature 97.2 F L Pulse Rate 119 H Respiratory Rate 16 18 18 Blood Pressure 103/64 Pulse Oximetry 94 L 03/03/18 20:00 03/03/18 23:35 03/03/18 23:36 Temperature 98.5 F Pulse Rate 127 H 109 H Respiratory Rate 18 18 23 Blood Pressure 112/60 Pulse Oximetry 93 L 03/04/18 00:11 03/04/18 03:05 03/04/18 04:11 Temperature 99.2 F Pulse Rate 132 H Respiratory Rate 18 18 18 Blood Pressure 101/58 L Pulse Oximetry 94 L 03/04/18 08:53 03/04/18 10:02 03/04/18 12:40 Temperature 99 F 97.9 F Pulse Rate 133 H 116 H Respiratory Rate 19 19 Blood Pressure 92/54 L 114/67 Pulse Oximetry 93 L 94 L 90 L 03/04/18 15:00 Temperature Pulse Rate 118 H Respiratory Rate 14 Blood Pressure Pulse Oximetry Intake & Output 03/03/18 03/04/18 03/04/18 18:59 06:59 18:59 Intake Total 1700 / 1700 1820 / 1820 1000 / 1000 Output Total 990 / 990 100 / 100 30 / 30 Balance 710 / 710 1720 / 1720 970 / 970 Weight 82.6 kg 89.8 kg Intake: IV 1100 / 1100 1000 / 1000 NS Inj 1,000 ML @ 100 mls/hr IV 1000 / 1000 1000 / 1000 .CONT .Q10H [facility] Rx#:[id number] Ancef 2 GM Premix Inj 2 gm In 100 / 100 50 ml @ 100 mls/hr IV.SIG Q8H [facility] Rx#:[id number] Oral 720 / 720 Anesthesia Amount 1700 / 1700 Output: Estimated Blood Loss 50 / 50 Urine Amount (Catheter) 800 / 800 Indwelling Urethral Catheter 800 / 800 Wound Drainage 140 / 140 100 / 100 30 / 30 # 1 Back Bakari 140 / 140 Back BOYD Drain 100 / 100 30 / 30 Other: # Bowel Movements 0 Weight On Admission 82.6 kg Narrative: awake, alert speech fluent appears comfortable NAD moving lower extremities well - Urinary Catheter Management Indwelling Urethral Catheter Cath placed during this visit: yes Reason for continuing: Hourly intake/output Insertion date: 03/03/18 Insertion time: 09:30 Assessment and Plan - Plan 62 y/o male L3-4, L4-L5 laminectomy with resection of epidural synovial cyst, interbody arthrodhesis using PEEK cage and autologous bone graft, L3-4, L4-L5 instrumental fixation using transpedicular screws and rods, L3-4, L4-L5 posterolateral fusion using autologous bone graft and demineralized bone matrix on 03/03/18 Chronic Etoh abuse Plan: bolus of NS, f/u vitals dw nursing hold PROPERTY MANAGEMENT ACCOUNTANT and anti-hypertensives until bp improves cont CIWA protocol elevated AST, change Lortab to Roxicodone f/u CBC tomorrow
[2018-03-05] MEDS: Sod Chloride 0.9% Inj 1,000 ML IV.CONT SCH ×4 (00:10→17:17)
[2018-03-05 06:03] LABS: Hematocrit 26.8 % (39.0-51.0); Hemoglobin 9.4 gm/dL (13.0-17.0); Mean Platelet Volume 7.7 fL (7.0-11.0); Platelet Count 174 th/mm3 (150-450); Red Blood Count 2.68 mil/mm3 (4.50-5.90); Red Cell Distribution Width 13.5 % (11.6-17.2); White Blood Count 9.2 th/mm3 (4.0-11.0)
[2018-03-05] MEDS: Senna/Docusate Sodium 8.6/50 MG Tablet PO SCH ×2 (08:39→21:02)
[2018-03-05] MEDS: Folic Acid 1 MG Tablet PO SCH (08:39)
[2018-03-05] MEDS: amLODIPine 5 MG Tablet PO SCH (08:39)
[2018-03-05] MEDS: Multivitamin/Minerals Therapeutic Tablet PO SCH (08:39)
[2018-03-05] MEDS: Gabapentin 400 MG Capsule PO SCH ×2 (12:28→18:16)
[2018-03-05] MEDS: Methocarbamol 500 MG Tablet PO SCH ×3 (12:28→21:02)
--- NOTE | 2018-03-05 13:28 | P.PNNS ---
Subjective Interval history: c/o surgical pain and leg pain. hypotension improved. Physical Exam Vital signs: Vital Signs 03/04/18 14:54 03/04/18 15:00 03/04/18 19:18 Temperature 98.6 F 99.5 F Pulse Rate 124 H 118 H 113 H Respiratory Rate 19 14 18 Blood Pressure 115/68 124/67 Pulse Oximetry 93 L 93 L 03/04/18 20:00 03/04/18 23:42 03/05/18 00:00 Temperature 98.7 F Pulse Rate 120 H 96 H 104 H Respiratory Rate 18 Blood Pressure 154/77 H Pulse Oximetry 94 L 03/05/18 03:47 03/05/18 04:03 03/05/18 08:20 Temperature 98.7 F 97.9 F Pulse Rate 105 H 105 H 101 H Respiratory Rate 18 19 Blood Pressure 156/81 H 143/74 H Pulse Oximetry 95 95 Intake & Output 03/04/18 03/05/18 03/05/18 18:59 06:59 18:59 Intake Total 1000 / 1000 3038 / 3038 Output Total 830 / 830 1020 / 1020 Balance 170 / 170 2017 Weight 89.8 kg Intake: IV 1000 / 1000 2798 / 2798 NS Inj 1,000 ML @ 100 mls/hr IV 1000 / 1000 2248 / 2248 .CONT .Q10H [facility] Rx#:[id number] Ancef 2 GM Premix Inj 2 gm In 50 / 50 50 ml @ 100 mls/hr IV.SIG Q8H [facility] Rx#:[id number] Oral 240 / 240 Output: Urine 800 / 800 Urine Amount (Catheter) 1000 / 1000 Indwelling Urethral Catheter 1000 / 1000 Wound Drainage / Back BOYD Drain Other: Date of Last Bowel Movement 03/03/18 03/03/18 # Bowel Movements 0 Narrative: Awake, alert. NAD Mild discomfort with lower extremity movement BOYD drain with 50 cc output overnight wound clean and dry - Urinary Catheter Management Indwelling Urethral Catheter Cath placed during this visit: yes, but has since been removed by the nurse Urethral indwelling: No Reason for continuing: Decision to DC catheter Insertion date: 03/03/18 Insertion time: 09:30 Removal date: 03/05/18 Removal time: 09:30 Assessment and Plan - Plan 62 y/o male L3-4, L4-L5 laminectomy with resection of epidural synovial cyst, interbody arthrodhesis using PEEK cage and autologous bone graft, L3-4, L4-L5 instrumental fixation using transpedicular screws and rods, L3-4, L4-L5 posterolateral fusion using autologous bone graft and demineralized bone matrix on 03/03/18 Chronic Etoh abuse Plan: restart antihypertensive may resume DIFFUSION FURNACE OPERATOR for postop pain control today, cont oral medications prn cont muscle relaxants from home dc DIFFUSION FURNACE OPERATOR tomorrow dc planning C anticipate date tomorrow, case mgt consulted for planning hospitalist following for medical management, appreciate assistance cont CIWA protocol, provide a beer with meals dc BOYD drain cont PT, mobilize with LSO brace
--- NOTE | 2018-03-05 13:38 | P.PNIM ---
Subjective Interval history: The patient is in bed appears in not acute distress at this time. He reports some tremors today earlier however he feels good at this time. He is able to eat not much. No nausea or vomiting. No shortness of breath at this time. Saturating well on 2 L by nasal cannula. Pain is better controlled today. Physical Exam Vital signs: Last Vital Signs Temp 97.9 F 03/05/18 12:17 Pulse 100 H 03/05/18 12:17 Resp 19 03/05/18 12:17 BP 150/72 H 03/05/18 12:17 Pulse Ox 98 03/05/18 12:17 Intake & Output 03/03/18 03/04/18 03/05/18 03/06/18 06:59 06:59 06:59 06:59 Intake Total 3520 / 3520 4038 / 4038 Output Total 1090 / 1090 1850 / 1850 Balance 2430 / 2430 2188 / 2188 Weight 89.8 kg 89.8 kg Narrative: GENERAL: 62 yo male, appears in nad. CARDIOVASCULAR: Regular rate and rhythm without murmurs, gallops, or rubs. RESPIRATORY: Breath sounds equal bilaterally. No accessory muscle use. GASTROINTESTINAL: Abdomen soft, non-tender, nondistended. MUSCULOSKELETAL: No cyanosis, or edema. Pain with lower extremity movement. BOYD drain in place NEURO: Alert and oriented. CN grossly normal. Strength grossly normal. Normal speech. Urinary Catheter Management Indwelling Urethral Catheter: Cath placed during this visit: yes, but has since been removed by the nurse Urethral indwelling: No Insertion date: 03/03/18 Insertion time: 09:30 Removal date: 03/05/18 Removal time: 09:30 Results Labs CBC & Chem 7: 03/05/18 05:06 03/04/18 04:27 Assessment and Plan Plan This pt is a 62 y/o M with a dx of htn, copd, and lower back pain. Patient had been having issues with lower back and hip pain for a few years and was receiving spinal injections with Dr. Canchola from pain managment in the past. After no significant improvement in his pain he decided to procede forward with neurosurgical intervention. MRI showed severe degenerative disk disease at L3- L5 with disk protusions, secondary stenosis, L4-L5 radiculopathy. I was called to evaluate the patient for medical management after he underwent neurosurgical intervention today. I believe the patient had L3-L5 laminectomy. I am awaiting Dr. Murray' note from the procedure today. 1. S/P Laminectomy Lumbar degenerative disk disease, synovial cyst, intractable mechanical back pain Date of procedure: 03/03/18 Procedure: L3-4, L4-L5 laminectomy with resection of epidural synovial cyst, interbody arthrodhesis using PEEK cage and autologous bone graft, L3-4, L4-L5 instrumental fixation using transpedicular screws and rods, L3-4, L4-L5 posterolateral fusion using autologous bone graft and demineralized bone matrix. Microsurgical dissection BOYD drain in place management per neurosurgeon 2. Tachycardia Patient is s/p neurosurgery I am awaiting Dr. Murray' note to see what exactly was done in the OR. Currently he is on Iv pump pain medications. Continue management as per neurosurgery. Start PT when ok with neurosurgery. Pt slightly tachycardic, likely from pain. Continue pain management. Continue IVF. Follow up all labs. Drop in HGB postsurgical, monitor. Pt with postsurgical anemia 2. HTN Start norvasc 5mg q daily Labs ordered. If kidney function is ok then pt can be restarted on Lisinopril which he takes at home. Adjust bp meds as needed. 3. COPD Continue supplemental oxygen and Duoneb txs as needed. I do not see symbicort on the pts med list. This can also be started. 4. ETOH abuse Patient with extensive etoh drinking hx. CIWA protocol. Watch for signs of withdrawal. 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 Pharmacotherapy for dvt prophylaxis per neurosurgery. Progress Note: Quality VTE Deep Vein Thrombosis/Pulmonary Embolism Present on Admission: No
--- NOTE | 2018-03-05 14:53 | P.DCO ---
- Physical Therapy Order: Improve ambulation - Home Health Nursing Order: Medical education, Medication education-adverse effect, Wound care and dressing changes, Nursing assessment with vital signs - Case Management Consult Case Management Consult-Home Health: Yes - Certification I have seen patient Gilberto Barnhart on 03/05/18. My clinical findings support the need for the requested home health care services because: Limited mobility due to disease progression, Deconditioned with increased weakness, High risk of falls I certify that my clinical findings support that this patient is homebound because: Post-op weakness, Unsteady gait/balance
[2018-03-05] MEDS: Budesonide-Formoterol 160/4.5 MCG 6 GM Inhaler INH SCH (21:02)
[2018-03-06] MEDS: HYDROmorphone PCA Inj 6 MG/30 ML PCA.VIAL PCA PRN (05:28)
[2018-03-06] MEDS: Sod Chloride 0.9% Inj 1,000 ML IV.CONT SCH ×3 (07:31→22:31)
[2018-03-06] MEDS: Senna/Docusate Sodium 8.6/50 MG Tablet PO SCH ×2 (08:20→21:15)
[2018-03-06] MEDS: Folic Acid 1 MG Tablet PO SCH (08:20)
[2018-03-06] MEDS: Sodium Chloride 1 GM Tablet PO SCH (08:20)
[2018-03-06] MEDS: Lisinopril 20 MG Tablet PO SCH (08:20)
[2018-03-06] MEDS: Gabapentin 400 MG Capsule PO SCH ×3 (08:20→17:06)
[2018-03-06] MEDS: Methocarbamol 500 MG Tablet PO SCH ×4 (08:20→21:14)
[2018-03-06] MEDS: Budesonide-Formoterol 160/4.5 MCG 6 GM Inhaler INH SCH ×2 (08:21→21:15)
[2018-03-06] MEDS: amLODIPine 5 MG Tablet PO SCH (08:21)
[2018-03-06] MEDS: Multivitamin/Minerals Therapeutic Tablet PO SCH (08:21)
--- NOTE | 2018-03-06 12:55 | P.PNIM ---
Subjective Interval history: The patient is in bed, appears in not acute distress at this time. Pain is better controlled by medications. No tremors, on CIWA No fever or chills. No much appetite not eating much. Since family will bring soup from home. No wheezing. Breathing better saturating well at this time while on room air. Physical Exam Vital signs: Last Vital Signs Temp 98.8 F 03/06/18 08:00 Pulse 82 03/06/18 08:00 Resp 16 03/06/18 08:00 BP 159/72 H 03/06/18 08:00 Pulse Ox 96 03/06/18 08:00 Intake & Output 03/04/18 03/05/18 03/06/18 03/07/18 06:59 06:59 06:59 06:59 Intake Total 3520 / 3520 4038 / 4038 2352 / 2352 Output Total 1090 / 1090 1850 / 1850 750 / 750 Balance 2430 / 2430 2188 / 2188 1602 / 1602 Weight 89.8 kg 89.8 kg 95.8 kg Narrative: GENERAL: 62 yo male, appears in nad. CARDIOVASCULAR: Regular rate and rhythm without murmurs, gallops, or rubs. RESPIRATORY: Breath sounds equal bilaterally. No accessory muscle use. GASTROINTESTINAL: Abdomen soft, non-tender, nondistended. MUSCULOSKELETAL: No cyanosis, or edema. Pain with lower extremity movement. BOYD drain in place NEURO: Alert and oriented. CN grossly normal. Strength grossly normal. Normal speech. Urinary Catheter Management Indwelling Urethral Catheter: Cath placed during this visit: yes, but has since been removed by the nurse Urethral indwelling: No Insertion date: 03/03/18 Insertion time: 09:30 Removal date: 03/05/18 Removal time: 09:30 Straight: Cath placed during this visit: yes, but has since been removed by the nurse Insertion date: 03/06/18 Insertion time: 06:15 Removal date: 03/06/18 Removal time: 06:20 Results Labs CBC & Chem 7: 03/05/18 05:06 03/04/18 04:27 Assessment and Plan Plan This pt is a 62 y/o M with a dx of htn, copd, and lower back pain. Patient had been having issues with lower back and hip pain for a few years and was receiving spinal injections with Dr. Canchola from pain managment in the past. After no significant improvement in his pain he decided to procede forward with neurosurgical intervention. MRI showed severe degenerative disk disease at L3- L5 with disk protusions, secondary stenosis, L4-L5 radiculopathy. I was called to evaluate the patient for medical management after he underwent neurosurgical intervention today. I believe the patient had L3-L5 laminectomy. I am awaiting Dr. Murray' note from the procedure today. 1. S/P Laminectomy Lumbar degenerative disk disease, synovial cyst, intractable mechanical back pain Date of procedure: 03/03/18 Procedure: L3-4, L4-L5 laminectomy with resection of epidural synovial cyst, interbody arthrodhesis using PEEK cage and autologous bone graft, L3-4, L4-L5 instrumental fixation using transpedicular screws and rods, L3-4, L4-L5 posterolateral fusion using autologous bone graft and demineralized bone matrix. Microsurgical dissection BOYD drain in place management per neurosurgeon 2. Tachycardia Patient is s/p neurosurgery I am awaiting Dr. Murray' note to see what exactly was done in the OR. Currently he is on Iv pump pain medications. Continue management as per neurosurgery. Start PT when ok with neurosurgery. Pt slightly tachycardic, likely from pain. Continue pain management. Continue IVF. Follow up all labs. Drop in HGB postsurgical, monitor. Pt with postsurgical anemia 2. HTN Start norvasc 5mg q daily Labs ordered. If kidney function is ok then pt can be restarted on Lisinopril which he takes at home. Adjust bp meds as needed. 3. COPD Continue supplemental oxygen and Duoneb txs as needed. I do not see symbicort on the pts med list. This can also be started. 4. ETOH abuse Patient with extensive etoh drinking hx. CIWA protocol. Watch for signs of withdrawal. Last drink was a day [employer] Counseled on etoh abuse. Pharmacotherapy for dvt prophylaxis per neurosurgery. Progress Note: Quality VTE Deep Vein Thrombosis/Pulmonary Embolism Present on Admission: No
--- NOTE | 2018-03-06 14:49 | P.PNNS ---
Subjective Interval history: c/o surgical pain which is improving. He is unable to void requiring self catheterization Physical Exam Vital signs: Vital Signs 03/05/18 15:53 03/05/18 20:00 03/05/18 20:49 Temperature 98.3 F 99.0 F Pulse Rate 100 H 95 H 102 H Respiratory Rate 19 18 Blood Pressure 150/73 H 138/64 Pulse Oximetry 98 100 94 L 03/06/18 00:47 03/06/18 05:23 03/06/18 08:00 Temperature 99.3 F 98.4 F 98.8 F Pulse Rate 96 H 85 82 Respiratory Rate 18 17 16 Blood Pressure 151/82 H 162/83 H 159/72 H Pulse Oximetry 93 L 93 L 96 03/06/18 12:00 Temperature 97.3 F L Pulse Rate 92 H Respiratory Rate 18 Blood Pressure 140/73 Pulse Oximetry 95 Intake & Output 03/05/18 03/06/18 03/06/18 18:59 06:59 18:59 Intake Total 752 / 752 1600 / 1600 Output Total 750 / 750 Balance 2 / 2 1600 / 1600 Weight 95.8 kg Intake: IV 752 / 752 1000 / 1000 NS Inj 1,000 ML @ 100 mls/hr IV 752 / 752 1000 / 1000 .CONT .Q10H [facility] Rx#:[id number] Oral 600 / 600 Output: Urine Amount (Catheter) 750 / 750 Straight 750 / 750 Other: # Voids 1 Date of Last Bowel Movement 03/03/18 03/05/18 03/06/18 # Bowel Movements 1 Narrative: GENERAL: 62 yo male, appears in nad. CARDIOVASCULAR: Regular rate and rhythm without murmurs, gallops, or rubs. RESPIRATORY: Breath sounds equal bilaterally. No accessory muscle use. GASTROINTESTINAL: Abdomen soft, non-tender, nondistended. MUSCULOSKELETAL: No cyanosis, or edema. Pain with lower extremity movement. BOYD drain in place NEURO: Alert and oriented. CN grossly normal. Strength grossly normal. Normal speech. incision intact, no drainage - Urinary Catheter Management Indwelling Urethral Catheter Cath placed during this visit: yes, but has since been removed by the nurse Urethral indwelling: No Reason for continuing: Decision to DC catheter Insertion date: 03/03/18 Insertion time: 09:30 Removal date: 03/05/18 Removal time: 09:30 Straight Cath placed during this visit: yes, but has since been removed by the nurse Reason for continuing: Not indwelling catheter Insertion date: 03/06/18 Insertion time: 06:15 Removal date: 03/06/18 Removal time: 06:20 Assessment and Plan - Plan 62 y/o male L3-4, L4-L5 laminectomy with resection of epidural synovial cyst, interbody arthrodhesis using PEEK cage and autologous bone graft, L3-4, L4-L5 instrumental fixation using transpedicular screws and rods, L3-4, L4-L5 posterolateral fusion using autologous bone graft and demineralized bone matrix on 03/03/18 Chronic Etoh abuse Plan: Will send [facility]A C&S restarted antihypertensive DC YARD JOCKEY pump cont muscle relaxants from home dc planning HHC anticipate date tomorrow, case mgt consulted for planning hospitalist following for medical management, cont CIWA protocol, provide a beer with meals Daily PT, mobilize with LSO brace
[2018-03-06] MEDS ORDERED: Enoxaparin Inj 30 MG/0.3 ML Syringe SQ SCH (16:00)
[2018-03-07 06:41] LABS: Bilirubin,Urine Negative (Negative); Clarity,Urine Clear (Clear); Color,Urine Yellow (Yellw/Straw); Glucose,Urine (UA) Negative (Negative); Hyaline Casts,Urine 1 /lpf (0-3); Leukocyte Esterase,Urine Negative (Negative); Mucus,Urine Few /lpf (Occasional); Nitrite,Urine Negative (Negative); Squamous Epithelial Cell,Urine <1 /hpf (0-5)
[2018-03-07] MEDS: Sodium Chloride 1 GM Tablet PO SCH (08:43)
[2018-03-07] MEDS: Senna/Docusate Sodium 8.6/50 MG Tablet PO SCH (08:43)
[2018-03-07] MEDS: Multivitamin/Minerals Therapeutic Tablet PO SCH (08:43)
[2018-03-07] MEDS: Gabapentin 400 MG Capsule PO SCH (08:43)
[2018-03-07] MEDS: amLODIPine 5 MG Tablet PO SCH (08:44)
[2018-03-07] MEDS: Budesonide-Formoterol 160/4.5 MCG 6 GM Inhaler INH SCH (08:44)
[2018-03-07] MEDS: Folic Acid 1 MG Tablet PO SCH (08:44)
[2018-03-07] MEDS: Lisinopril 20 MG Tablet PO SCH (08:44)
[2018-03-07] MEDS: Methocarbamol 500 MG Tablet PO SCH (08:44)
[2018-03-07 09:21] VITALS: RESP 16
--- NOTE | 2018-03-07 11:32 | P.PNIM ---
Subjective Interval history: No events overnight. Improved. No complaints. Stable medically Physical Exam Vital signs: Last Vital Signs Temp 98.3 F 03/07/18 08:00 Pulse 93 H 03/07/18 08:00 Resp 16 03/07/18 08:00 BP 153/75 H 03/07/18 08:00 Pulse Ox 94 L 03/07/18 08:00 Intake & Output 03/05/18 03/06/18 03/07/18 03/08/18 06:59 06:59 06:59 06:59 Intake Total 4038 / 4038 2352 / 2352 1000 / 1000 Output Total 1850 / 1850 750 / 750 1200 / 1200 Balance 2188 / 2188 1602 / 1602 -200 / -200 Weight 89.8 kg 95.8 kg 96.8 kg Narrative: GENERAL: 62 yo male, appears in nad. CARDIOVASCULAR: Regular rate and rhythm without murmurs, gallops, or rubs. RESPIRATORY: Breath sounds equal bilaterally. No accessory muscle use. GASTROINTESTINAL: Abdomen soft, non-tender, nondistended. MUSCULOSKELETAL: No cyanosis, or edema. Pain with lower extremity movement. BOYD drain in place NEURO: Alert and oriented. CN grossly normal. Strength grossly normal. Normal speech. incision intact, no drainage Urinary Catheter Management Indwelling Urethral Catheter: Cath placed during this visit: yes, but has since been removed by the nurse Urethral indwelling: No Insertion date: 03/03/18 Insertion time: 09:30 Removal date: 03/05/18 Removal time: 09:30 Straight: Cath placed during this visit: yes, but has since been removed by the nurse Insertion date: 03/06/18 Insertion time: 06:15 Removal date: 03/06/18 Removal time: 06:20 Results Labs CBC & Chem 7: 03/05/18 05:06 03/04/18 04:27 Assessment and Plan Plan This pt is a 62 y/o M with a dx of htn, copd, and lower back pain. Patient had been having issues with lower back and hip pain for a few years and was receiving spinal injections with Dr. Canchola from pain managment in the past. After no significant improvement in his pain he decided to procede forward with neurosurgical intervention. MRI showed severe degenerative disk disease at L3- L5 with disk protusions, secondary stenosis, L4-L5 radiculopathy. I was called to evaluate the patient for medical management after he underwent neurosurgical intervention today. I believe the patient had L3-L5 laminectomy. I am awaiting Dr. Murray' note from the procedure today. 1. S/P Laminectomy Lumbar degenerative disk disease, synovial cyst, intractable mechanical back pain Date of procedure: 03/03/18 Procedure: L3-4, L4-L5 laminectomy with resection of epidural synovial cyst, interbody arthrodhesis using PEEK cage and autologous bone graft, L3-4, L4-L5 instrumental fixation using transpedicular screws and rods, L3-4, L4-L5 posterolateral fusion using autologous bone graft and demineralized bone matrix. Microsurgical dissection BOYD drain in place management per neurosurgeon 2. Tachycardia Patient is s/p neurosurgery I am awaiting Dr. Murray' note to see what exactly was done in the OR. Currently he is on Iv pump pain medications. Continue management as per neurosurgery. Start PT when ok with neurosurgery. Pt slightly tachycardic, likely from pain. Continue pain management. Continue IVF. Follow up all labs. Drop in HGB postsurgical, monitor. Pt with postsurgical anemia 2. HTN Start norvasc 5mg q daily Labs ordered. If kidney function is ok then pt can be restarted on Lisinopril which he takes at home. Adjust bp meds as needed. 3. COPD Continue supplemental oxygen and Duoneb txs as needed. I do not see symbicort on the pts med list. This can also be started. 4. ETOH abuse Patient with extensive etoh drinking hx. CIWA protocol. Watch for signs of withdrawal. Last drink was a day [employer] Counseled on etoh abuse. Pharmacotherapy for dvt prophylaxis per neurosurgery. Progress Note: Quality VTE Deep Vein Thrombosis/Pulmonary Embolism Present on Admission: No
[2018-03-07 12:20] VITALS: BP 152/70; PULSE 95; TEMP 97.8; O2SAT 91
--- NOTE | 2018-03-08 09:42 | P.DS ---
Date of admission: 03/03/18 07:57 Primary care physician: UNKNOWN Brief History from admission: Mr Barnhart is a 62 year-old male who presented with intractable mechanical back pain and meet evidence of L4 and L5 lower extremity radiculopathy. He has failed maximum nonsurgical management including multiple modalities of conservative treatment as well as pain management interventions by an interventional pain specialist. A surgical decompression and arthrodhesis were indicated as a last resort. DS: Medications - Discharge Medications Prescriptions: oxycodone 10 mg PO Q6HR PRN 7 Days #30 tab PRN Reason: Pain 1-10 And/Or Fever >101f DS: Summary Hospital Course: Mr. Barnhart underwent a L3-4, L4-L5 laminectomy with resection of epidural synovial cyst, interbody arthrodhesis using PEEK cage and autologous bone graft , L3-4, L4-L5 instrumental fixation using transpedicular screws and rods, L3-4, L4-L5 posterolateral fusion using autologous bone graft and demineralized bone matrix. Microsurgical for Lumbar degenerative disk disease, synovial cyst, intractable mechanical back pain on 03/03/18. His surgery went well without complications. He was placed on CIWA protocol due to chronic etoh abuse. He was followed by hospitalist to assist in medical management. His surgical pain controlled and was discharged in stable conditions. - Time Spent with Patient Total time spent providing and/or coordinating discharge services: Less than 30 minutes - Quality: VTE Deep Vein Thrombosis/Pulmonary Embolism Present on Admission: No Exam Vital signs: Vital Signs 03/07/18 12:00 Temperature 97.8 F Pulse Rate 95 H Respiratory Rate 16 Blood Pressure 152/70 H Pulse Oximetry 91 L Intake & Output 03/07/18 03/08/18 03/08/18 18:59 06:59 18:59 Other: Date of Last Bowel Movement 03/07/18 Results Procedures completed during hospitalization: L3-4, L4-L5 laminectomy with resection of epidural synovial cyst, interbody arthrodhesis using PEEK cage and autologous bone graft, L3-4, L4-L5 instrumental fixation using transpedicular screws and rods, L3-4, L4-L5 posterolateral fusion using autologous bone graft and demineralized bone matrix. Microsurgical - Impressions ITS Impressions Lumbar Spine X-Ray 03/03/18 00:00 CONCLUSION: Anatomic alignment Discharge Plan - Discharge Disposition Patient Disposition: W/Home Health Service - Discharge Condition Condition: Stable - Discharge Order Discharge Orders: Discharge Order (Routine); Ordered 03/06/18 Ordered By: Irma Mancilla - Physicians Team Primary Care Provider: UNKNOWN, Attending Provider: Rick Gutierrez Other Providers: Baylee Alvarez MD - Rxs /Orders / Referrals /Forms Prescriptions: New oxycodone 5 mg Tablet 10 mg PO Q6HR PRN (Reason: Pain 1-10 And/Or Fever >101f) 7 Days Qty: 30 RF : 0 Continue fluticasone-salmeterol [Advair Diskus] 250-50 mcg/dose Blister With Device 1 inh INHALATION BID gabapentin 600 mg Tablet 600 mg PO TID lisinopril 40 mg Tablet 40 mg PO DAILY methocarbamol [Robaxin] 500 mg Tablet 500 mg PO QID sodium chloride 1 gram Tablet 1,000 mg PO DAILY Discontinued meloxicam 15 mg Tablet 15 mg PO DAILY tramadol 50 mg Tablet 50 mg PO Q6H PRN (Reason: Pain) Ambulatory Orders / Order Sets / DME: Adjustable Commode 3-in-1 (1 each) (Routine) Location: Determined by Patient Ordered By: Irma Mancilla Walker With Front Wheels (1 each) (Routine) Location: Determined by Patient Ordered By: Irma Mancilla Referrals: UNKNOWN, [Primary Care Provider] - See Instructions - Discharge Instructions Patient Printed Instructions: Oxycodone/Acetaminophen (By mouth), Laminectomy ( DC), Abuse of Alcohol (DC), Lumbar Spinal Fusion (DC), Lumbar Spinal Fusion (GEN ) Additional Instructions: Take medications as directed. Follow up as instructed by your providers. Pain medications cause constipation, use over the counter stool softeners. - Post Discharge Care Plan Care Plan Goals: Your Health Problems: Goals to Promote Your Health: * To prevent worsening of your condition * To maintain your health at the optimal level Directions to Meet Your Goals: * Take your medications as prescribed * Follow your dietary instruction * Follow activity as directed * Keep your appointments as scheduled * Take your immunizations and boosters as scheduled * If your symptoms worsen call your PCP * If no PCP go to Urgent Care or Emergency Room Smoking is dangerous to your health. Avoid second hand smoke. You may reach the 24-hour crisis hotline for domestic abuse at .
== END 2018-03-07 12:18 | disposition home health service (06) | DRG 455 ==
LOC: HSDI 07:57 → N06 17:40
PROVIDERS: ADMIT Neurological Surgery; ATTEND Neurological Surgery
CPT/HCPCS: 72100; 76000; 80048; 80076; 81001; 82040; 82948; 82962; 83735; 85025; 85027; 86850; 86900; 86901; 88304; 88305; 88311; 94150; 94640; 94664; 94665; 97110; 97116; 97162; 97530; C1713; C9290; J0131; J0690; J1170; J1580; J1650; J2175; J2250; J2704; J3010; J3370; J7030; J7040; J7050; J7120; L0484; L0560; L0565